=== PATIENT | male | born 1990 | race Caucasian/White ===

== ENCOUNTER 2020-01-31 15:29 | Emergency (ER) | payer SELFPAY ==
[~2020-01-31] VITALS: Ht 175.3 cm; Wt 83.9 kg
[2020-01-31 15:37] VITALS: BP 132/85
--- NOTE | 2020-01-31 15:45 | NUR ---
Pt ambulated to bed 02
--- NOTE | 2020-01-31 15:54 | NUR ---
29 Y/O MALE PRESENTS WITH LAC TO RIGHT KNEE S/P FALLING ONTO ROCK WHILE HIKING TODAY. NOT ACTIVELY BLEEDING. [id number] WOUND. EDGES IN TACT. ROM+, CMS+. PT CANNOT RECALL LAST TDAP. NO PMH
[2020-01-31] MEDS ORDERED: LIDOCAINE 2% 1000 MG/50 ML VIAL INJ ONE (15:55)
[2020-01-31] MEDS ORDERED: BACITRACIN OINT 500 UNITS/GM PKT TP ONE ×2 (16:23→16:25)
[2020-01-31 16:35] VITALS: BP 132/85
--- NOTE | 2020-01-31 16:35 | NUR ---
Patient discharged with v/s stable. Written and verbal after care instructions given and explained. Patient alert, oriented and verbalized understanding of instructions. Ambulatory with steady gait. All questions addressed prior to discharge. ID band removed. Patient advised to follow up with PMD. Rx of IBUPROFEN,KEFLEX given. Patient educated on indication of medication including possible reaction and side effects. Opportunity to ask questions provided and answered.
== END 2020-01-31 16:35 | disposition home or self-care (01) ==
LOC: MED 15:29
DX: S81.011A Laceration without foreign body, right knee, initial encounter (principal); Y93.01 Activity, walking, marching and hiking; Y93.31 Activity, mountain climbing, rock climbing and wall climbing; Y92.89 Other specified places as the place of occurrence of the external cause; Y99.8 Other external cause status
CPT/HCPCS: 12002; 73562; 90471; 90715; 99283; J2001